=== PATIENT | male | born 1980 | race Caucasian/White ===

== ENCOUNTER 2016-11-14 20:21 | Emergency (ER) | payer OTHER ==
[~2016-11-14] VITALS: Ht 193 cm; Wt 110.0 kg
[~2016-11-14 20:21] MED LIST: IBUP800T25 PO; LACO200T2 PO; LEVE100018 PO
[2016-11-14 20:48] VITALS: Ht 193 cm; Wt 110.0 kg
--- NOTE | 2016-11-14 21:18 | ERD ---
ER Documentation Chief Complaint Date/Time DATE: 11/14/16 TIME: 21:18 Chief Complaint Ran out of seizure meds HPI 36-year-old male with a history of traumatic brain injury and seizure disorder presenting for refill of his medications. He states that he ran out of his Vimpat. He does not have an appointment with his doctor anytime soon. He is supposed to take a dose tonight. He denies any recent seizures. Last seizure was 2 years ago. ROS All systems reviewed and are negative except as per history of present illness. Medications Home Meds Active Scripts Lacosamide (Vimpat) 200 Mg Tablet, 200 MG PO BID, #60 TAB Prov:MARKY DAVEY MD 11/14/16 Ibuprofen* (Motrin*) 800 Mg Tab, 800 MG PO Q6, #14 TAB Prov:ESSENCE VILLALPANDO PA-C 11/11/15 Reported Medications Lacosamide (Vimpat) 200 Mg Tablet, 200 MG PO BID, TAB 08/08/15 Levetiracetam* (Keppra*) 1,000 Mg Tablet, 1500 MG PO BID, TAB 08/08/15 Allergies Allergies: Coded Allergies: No Known Allergies (Verified Allergy, Mild, 09/17/15) PMhx/Soc History of Surgery: Yes (ON LEFT ARM MASS EXCISION) Anesthesia Reaction: Yes Hx Neurological Disorder: Yes (SEIZURES) Hx Respiratory Disorders: No Hx Cardiac Disorders: No Hx Psychiatric Problems: No Hx Miscellaneous Medical Probl: No Hx Alcohol Use: No Hx Substance Use: No Hx Tobacco Use: No FmHx Family History: No diabetes Physical Exam Vitals Vital Signs Date Time Temp Pulse Resp B/P Pulse Ox O2 Delivery O2 Flow Rate FiO2 11/14/16 20:48 97.3 59 20 114/55 97 Physical Exam Const: Well-appearing, no distress Head: Atraumatic Eyes: Normal Conjunctiva ENT: Normal External Ears, Nose and Mouth. Neck: Full range of motion. No meningismus. Resp: Clear to auscultation bilaterally Cardio: Regular rate and rhythm, no murmurs Abd: Soft, non tender, non distended. Normal bowel sounds Ext: No cyanosis, or edema Neur: Awake and alert and oriented 3, cranial nerves intact, moving all extremities, normal gait Procedures/MDM Patient is presenting for a refill of his Vimpat seizure medication. His vitals are stable. Physical exam is unremarkable. Refill of his Vimpat was given. I recommended he follow-up with his primary care doctor or neurologist for any further refills, as the ER is not an appropriate place to get refills. Departure Diagnosis: Primary Impression: Encounter for medication refill Additional Impression: Seizure disorder Condition: Stable MARKY DAVEY MD November 14, 2016 21:18
[2016-11-14] MEDS ORDERED: LACO200T2 PO (21:25)
== END 2016-11-14 21:30 | disposition home or self-care (01) ==
LOC: E/R 20:21
DX: Z76.0 Encounter for issue of repeat prescription (principal); G40.909 Epilepsy, unspecified, not intractable, without status epilepticus
CPT/HCPCS: 99281

== ENCOUNTER 2017-08-10 11:57 | Day surgery (SDC) | END 2017-08-10 18:27 | disposition home or self-care (01) ==